=== PATIENT | female | born 1965 ===

== ENCOUNTER 2022-07-07 21:18 | Inpatient (IN) ==
[2022-07-08] MEDS ORDERED: ACETAMINOPHEN 325 MG TABLET PO PRN (00:18)
[2022-07-08] MEDS ORDERED: MORPHINE 2 MG/1 ML SYRINGE IV PRN ×2 (00:18→15:58)
[2022-07-08] MEDS ORDERED: ONDANSETRON 4 MG/2 ML VIAL IV PRN (00:18)
[2022-07-08] MEDS ORDERED: GLUCAGON 1 MG VIAL IM PRN (00:18)
[2022-07-08] MEDS ORDERED: hydrALAZINE 20 MG/1 ML VIAL IV PRN (00:18)
[2022-07-08] MEDS ORDERED: DEXTROSE 10% 250 ML BAG IV PRN (00:29)
[2022-07-08 00:43] LABS: Basophils % 0.4 % (0.0-0.8); Eosinophils # 0.1 10*3/uL (0.0-0.87); Hemoglobin 7.8 GM/DL (12.0-16.0); Immature Granulocytes % 1.5 %; Immature Granulocytes Absolute 0.08 #; Lymphocytes # 1.4 10*3/uL (1.4-4.0); Lymphocytes % 25.3 % (21.3-54.2); Mean Corpuscular HGB Conc 33.9 GM/DL (32-36); Mean Corpuscular Volume 101.8 FL (87-102); Monocytes # 0.4 10*3/uL (0.11-0.8); Monocytes % 7.8 % (1.7-12.7); NRBC # 0.02 10*3/uL; Platelet Count 102 T/CUMM (130-400); Red Blood Count 2.26 MC/CUMM (3.8-5.5); White Blood Count 5.5 T/CUMM (4-12)
[2022-07-08 01:12] LABS: Albumin 1.6 G/DL (3.4-5.0); Bilirubin,Total 0.4 MG/DL (0.20-1.00); Calcium 7.3 MG/DL (8.5-10.1); Potassium 2.8 MMOL/L (3.5-5.1); Total Protein 5.3 G/DL (6.4-8.2)
[2022-07-08] MEDS ORDERED: POTASSIUM CHLORIDE 20 MEQ TABLET PO ONE ×4 (01:49→18:00)
[2022-07-08] MEDS ORDERED: MAGNESIUM SULF RIDER 2 GM/50 ML PREMIX IV ONE ×2 (05:17→11:00)
[2022-07-08] MEDS ORDERED: ceFAZolin 1,000 MG VIAL INTRAPERIT SCH (09:00)
[2022-07-08] MEDS: PANTOPRAZOLE 40 MG TABLET PO SCH (09:16)
[2022-07-08] MEDS: INSULIN LISPRO 100 UNIT/ML SUBCUT SCH ×4 (10:21→21:39)
[2022-07-08] MEDS: EPOETIN ALFA-EPBX 3,000 UNIT/ML VIAL SUBCUT SCH (13:11)
[2022-07-08 15:34] LABS: Amylase,Peritoneal Fluid 18 U/L; Glucose,Peritoneal Fluid 204 MG/DL; LDH,Peritoneal Fluid 99 U/L; Total Protein,Peritoneal Fluid 1.3 G/DL
[2022-07-08 15:50] LABS: Neutrophils,Peritoneal Fluid 76 %
[2022-07-08 15:51] LABS: RBC,Peritoneal Fluid 55 T/CUMM
[2022-07-08] MEDS: oxyCODONE/ACETAMINOPHEN 5-325 MG TABLET PO PRN ×2 (17:46→21:39)
[2022-07-09 05:21] LABS: Basophils % 0.3 % (0.0-0.8); Eosinophils # 0.3 10*3/uL (0.0-0.87); Eosinophils % 4.1 % (0.00-10.9); Hematocrit 24.8 VOL% (35.7-47.0); Hemoglobin 7.9 GM/DL (12.0-16.0); Immature Granulocytes % 1.1 %; Immature Granulocytes Absolute 0.07 #; Lymphocytes # 1.3 10*3/uL (1.4-4.0); Lymphocytes % 19.9 % (21.3-54.2); Mean Corpuscular HGB Conc 31.9 GM/DL (32-36); Mean Platelet Volume 10.4 FL (9.6-12.0); Monocytes # 0.5 10*3/uL (0.11-0.8); Monocytes % 7.9 % (1.7-12.7); NRBC # 0.02 10*3/uL; Neutrophils % 66.7 % (38.7-73.9); Platelet Count 101 T/CUMM (130-400); Red Blood Count 2.34 MC/CUMM (3.8-5.5); Red Cell Distribution Width 15.6 % (9.3-17.3); White Blood Count 6.6 T/CUMM (4-12)
[2022-07-09 05:39] LABS: Osmolality,Calculated 278.2 MOS/KG (273-304); Potassium 5.5 MMOL/L (3.5-5.1)
[2022-07-09 05:44] LABS: Platelet Estimate Adequate
[2022-07-09 05:45] LABS: Anisocytosis 1+; Macrocytosis 1+
[2022-07-09] MEDS: PANTOPRAZOLE 40 MG TABLET PO SCH (08:49)
[2022-07-09] MEDS: INSULIN LISPRO 100 UNIT/ML SUBCUT SCH ×5 (10:54→20:23)
[2022-07-09] MEDS: SODIUM POLYSTYRENE SULFATE 15 GM/60 ML BOTTLE PO SCH ×3 (11:03→23:19)
[2022-07-09] MEDS: oxyCODONE/ACETAMINOPHEN 5-325 MG TABLET PO PRN ×2 (15:30→21:23)
[2022-07-09] MEDS: DICLOFENAC 1% GEL 100 GM TUBE TOP SCH ×2 (18:16→21:24)
[2022-07-09] MEDS: ALUMINUM/MAGNES/SIMETH MAX STR 30 ML UDCUP PO PRN (21:23)
[2022-07-10 05:28] LABS: Basophils % 0.3 % (0.0-0.8); Eosinophils # 0.2 10*3/uL (0.0-0.87); Eosinophils % 3.6 % (0.00-10.9); Hematocrit 30.9 VOL% (35.7-47.0); Hemoglobin 9.6 GM/DL (12.0-16.0); Immature Granulocytes Absolute 0.06 #; Lymphocytes # 1.3 10*3/uL (1.4-4.0); Lymphocytes % 21.3 % (21.3-54.2); Mean Corpuscular HGB Conc 31.1 GM/DL (32-36); Mean Corpuscular Volume 107.3 FL (87-102); Monocytes # 0.4 10*3/uL (0.11-0.8); Monocytes % 6.4 % (1.7-12.7); NRBC # 0.02 10*3/uL; Neutrophils % 67.4 % (38.7-73.9); Platelet Count 103 T/CUMM (130-400); Red Blood Count 2.88 MC/CUMM (3.8-5.5); Red Cell Distribution Width 15.1 % (9.3-17.3); White Blood Count 6.1 T/CUMM (4-12)
[2022-07-10 05:57] LABS: Alanine Aminotransferase < 9 U/L (13-56); Albumin 1.8 G/DL (3.4-5.0); Alkaline Phosphatase 95 U/L (45-117); Aspartate Amino Transferase 23 U/L (0-37); Blood Urea Nitrogen 42 MG/DL (7-18); Calcium 8.6 MG/DL (8.5-10.1); Carbon Dioxide 26 MMOL/L (21-32); Chloride 97 MMOL/L (98-107); Glucose 145 MG/DL (74-106); Osmolality,Calculated 283.1 MOS/KG (273-304); Potassium 4.3 MMOL/L (3.5-5.1); Sodium 135 MMOL/L (136-145); Total Protein 6.5 G/DL (6.4-8.2)
[2022-07-10] MEDS: SODIUM POLYSTYRENE SULFATE 15 GM/60 ML BOTTLE PO SCH ×2 (06:45→12:23)
[2022-07-10] MEDS: INSULIN LISPRO 100 UNIT/ML SUBCUT SCH ×4 (08:11→21:05)
[2022-07-10] MEDS: PANTOPRAZOLE 40 MG TABLET PO SCH (08:46)
[2022-07-10] MEDS: DICLOFENAC 1% GEL 100 GM TUBE TOP SCH ×3 (08:47→21:06)
[2022-07-10] MEDS: EPOETIN ALFA-EPBX 3,000 UNIT/ML VIAL SUBCUT SCH (08:49)
[2022-07-10] MEDS: oxyCODONE/ACETAMINOPHEN 5-325 MG TABLET PO PRN (17:46)
[2022-07-11 05:04] LABS: Basophils % 0.6 % (0.0-0.8); Hematocrit 24.6 VOL% (35.7-47.0); Hemoglobin 7.8 GM/DL (12.0-16.0); Immature Granulocytes % 1.8 %; Immature Granulocytes Absolute 0.09 #; Lymphocytes # 0.6 10*3/uL (1.4-4.0); Lymphocytes % 11.8 % (21.3-54.2); Mean Corpuscular HGB Conc 31.7 GM/DL (32-36); Mean Corpuscular Volume 105.6 FL (87-102); Mean Platelet Volume 10.3 FL (9.6-12.0); Monocytes # 0.5 10*3/uL (0.11-0.8); Monocytes % 10.6 % (1.7-12.7); NRBC # 0.02 10*3/uL; Neutrophils % 75.2 % (38.7-73.9); Platelet Count 83 T/CUMM (130-400); Red Blood Count 2.33 MC/CUMM (3.8-5.5); Red Cell Distribution Width 14.7 % (9.3-17.3); White Blood Count 5.1 T/CUMM (4-12)
[2022-07-11 05:25] LABS: Alanine Aminotransferase < 6 U/L (13-56); Albumin 1.4 G/DL (3.4-5.0); Alkaline Phosphatase 80 U/L (45-117); Aspartate Amino Transferase 17 U/L (0-37); Bilirubin,Total < 0.39 MG/DL (0.20-1.00); Blood Urea Nitrogen 40 MG/DL (7-18); Calcium 8.2 MG/DL (8.5-10.1); Carbon Dioxide 31 MMOL/L (21-32); Chloride 94 MMOL/L (98-107); Glucose 171 MG/DL (74-106); Osmolality,Calculated 279.4 MOS/KG (273-304); Potassium 3.7 MMOL/L (3.5-5.1); Sodium 133 MMOL/L (136-145); Total Protein 5.4 G/DL (6.4-8.2)
[2022-07-11 05:32] LABS: Platelet Estimate Decreased
[2022-07-11] MEDS: INSULIN LISPRO 100 UNIT/ML SUBCUT SCH ×4 (08:35→21:34)
[2022-07-11] MEDS: BENZONATATE 100 MG CAPSULE PO PRN ×2 (08:35→14:53)
[2022-07-11] MEDS: PANTOPRAZOLE 40 MG TABLET PO SCH (08:35)
[2022-07-11] MEDS: DICLOFENAC 1% GEL 100 GM TUBE TOP SCH ×3 (08:36→21:35)
[2022-07-11] MEDS: ALUMINUM/MAGNES/SIMETH MAX STR 30 ML UDCUP PO PRN (08:39)
[2022-07-11] MEDS: oxyCODONE/ACETAMINOPHEN 5-325 MG TABLET PO PRN (14:54)
[2022-07-11] MEDS ORDERED: amLODIPine 10 MG TABLET PO ONE (15:00)
[2022-07-12 05:50] LABS: Basophils % 0.4 % (0.0-0.8); Eosinophils # 0.4 10*3/uL (0.0-0.87); Eosinophils % 7.4 % (0.00-10.9); Hematocrit 22.6 VOL% (35.7-47.0); Hemoglobin 7.3 GM/DL (12.0-16.0); Immature Granulocytes % 1.2 %; Immature Granulocytes Absolute 0.06 #; Lymphocytes # 0.6 10*3/uL (1.4-4.0); Lymphocytes % 11.3 % (21.3-54.2); Mean Corpuscular HGB Conc 32.3 GM/DL (32-36); Mean Corpuscular Volume 104.6 FL (87-102); Mean Platelet Volume 11.1 FL (9.6-12.0); Monocytes # 0.4 10*3/uL (0.11-0.8); Monocytes % 7.6 % (1.7-12.7); NRBC # 0.02 10*3/uL; Neutrophils % 72.1 % (38.7-73.9); Platelet Count 81 T/CUMM (130-400); Red Blood Count 2.16 MC/CUMM (3.8-5.5); Red Cell Distribution Width 14.6 % (9.3-17.3)
[2022-07-12 06:06] LABS: Alanine Aminotransferase < 6 U/L (13-56); Albumin 1.3 G/DL (3.4-5.0); Alkaline Phosphatase 79 U/L (45-117); Aspartate Amino Transferase 16 U/L (0-37); Bilirubin,Total < 0.39 MG/DL (0.20-1.00); Blood Urea Nitrogen 36 MG/DL (7-18); Calcium 8.5 MG/DL (8.5-10.1); Carbon Dioxide 30 MMOL/L (21-32); Chloride 94 MMOL/L (98-107); Glucose 212 MG/DL (74-106); Osmolality,Calculated 277.5 MOS/KG (273-304); Potassium 3.5 MMOL/L (3.5-5.1); Sodium 132 MMOL/L (136-145); Total Protein 5.3 G/DL (6.4-8.2)
[2022-07-12 06:24] LABS: Macrocytosis 1+; Platelet Estimate Decreased; Polychromasia Few
[2022-07-12] MEDS: PANTOPRAZOLE 40 MG TABLET PO SCH (08:57)
[2022-07-12] MEDS: BENZONATATE 100 MG CAPSULE PO PRN (08:57)
[2022-07-12] MEDS: oxyCODONE/ACETAMINOPHEN 5-325 MG TABLET PO PRN (08:57)
[2022-07-12] MEDS: EPOETIN ALFA-EPBX 3,000 UNIT/ML VIAL SUBCUT SCH (09:01)
[2022-07-12] MEDS: DICLOFENAC 1% GEL 100 GM TUBE TOP SCH (09:08)
[2022-07-12] MEDS: INSULIN LISPRO 100 UNIT/ML SUBCUT SCH ×2 (10:10→12:53)
[2022-07-12 13:36] VITALS: BP 147/73
== END 2022-07-12 14:34 | disposition home or self-care (01) | DRG 371 ==
LOC: N.5E 23:13 → SUATTDRO 23:13
PROVIDERS: ADMIT Internal Medicine; ATTEND Internal Medicine

== ENCOUNTER 2022-07-21 12:02 | Inpatient (IN) ==
[2022-07-21 12:37] LABS: Basophils % 0.7 % (0.0-0.8); Eosinophils # 0.1 10*3/uL (0.0-0.87); Eosinophils % 1.6 % (0.00-10.9); Hematocrit 26.4 VOL% (35.7-47.0); Hemoglobin 8.5 GM/DL (12.0-16.0); Immature Granulocytes % 2.1 %; Immature Granulocytes Absolute 0.09 #; Lymphocytes % 23.2 % (21.3-54.2); Mean Corpuscular HGB Conc 32.2 GM/DL (32-36); Mean Corpuscular Volume 104.3 FL (87-102); Mean Platelet Volume 10.9 FL (9.6-12.0); Monocytes # 0.3 10*3/uL (0.11-0.8); Monocytes % 7.8 % (1.7-12.7); NRBC # 0.02 10*3/uL; Neutrophils % 64.6 % (38.7-73.9); Platelet Count 79 T/CUMM (130-400); Red Blood Count 2.53 MC/CUMM (3.8-5.5); Red Cell Distribution Width 14.5 % (9.3-17.3); White Blood Count 4.4 T/CUMM (4-12)
[2022-07-21 12:53] LABS: Alanine Aminotransferase < 6 U/L (13-56); Albumin 1.5 G/DL (3.4-5.0); Alkaline Phosphatase 119 U/L (45-117); Amylase 42 U/L (25-115); Aspartate Amino Transferase 31 U/L (0-37); Blood Urea Nitrogen 22 MG/DL (7-18); Calcium 7.8 MG/DL (8.5-10.1); Carbon Dioxide 28 MMOL/L (21-32); Chloride 94 MMOL/L (98-107); Glucose 106 MG/DL (74-106); Osmolality,Calculated 264.7 MOS/KG (273-304); Potassium 2.8 MMOL/L (3.5-5.1); Sodium 131 MMOL/L (136-145); Total Protein 5.4 G/DL (6.4-8.2)
[2022-07-21 13:22] LABS: Anisocytosis Slight; Pappenheimer Bodies Slight
[2022-07-21 13:23] LABS: Platelet Estimate Decreased; Polychromasia Few
[2022-07-21] MEDS ORDERED: POTASSIUM CHLORIDE RIDER 20 MEQ/100 ML PREMIX IV STA (13:45)
[2022-07-21] MEDS: POTASSIUM CHLORIDE RIDER 10 MEQ/100 ML PREMIX IV SCH ×2 (14:00→15:21)
[2022-07-21] MEDS ORDERED: guaiFENesin/DM ER 600-30 MG TABLET PO PRN (15:08)
[2022-07-21] MEDS ORDERED: hydrALAZINE 20 MG/1 ML VIAL IV PRN (15:08)
[2022-07-21] MEDS ORDERED: LACTULOSE 20 GM/30 ML UDCUP PO PRN (15:08)
[2022-07-21] MEDS ORDERED: PROMETHAZINE 25 MG/1 ML VIAL IM PRN (15:08)
[2022-07-21] MEDS ORDERED: ONDANSETRON 4 MG/2 ML VIAL IV PRN (15:08)
[2022-07-21] MEDS ORDERED: cefTRIAXone 2,000 MG in SODIUM CHLORIDE 0.9% 100 ML IV SCH (15:30)
[2022-07-21] MEDS ORDERED: INSULIN REGULAR 100 UNIT/ML SUBCUT STA (15:51)
[2022-07-21] MEDS ORDERED: POTASSIUM CHLORIDE 20 MEQ TABLET PO ONE (16:11)
[2022-07-21] MEDS ORDERED: POTASSIUM CHLORIDE INJ 10 MEQ in DEXTROSE 5% NACL 0.9% 1,000 ML IV SCH (16:30)
[2022-07-21] MEDS: amLODIPine 10 MG TABLET PO SCH (17:38)
[2022-07-21] MEDS: PANTOPRAZOLE 40 MG TABLET PO SCH (17:38)
[2022-07-21] MEDS ORDERED: EPOETIN ALFA-EPBX 10,000 UNIT/ML VIAL SUBCUT ONE (20:00)
[2022-07-21] MEDS: GABAPENTIN 300 MG CAPSULE PO SCH (21:04)
[2022-07-21] MEDS: cloNIDine 0.1 MG TABLET PO SCH (21:04)
[2022-07-21] MEDS: FERROUS SULFATE 325 MG TABLET PO SCH (21:04)
[2022-07-21] MEDS: LUBIPROSTONE 24 MCG CAPSULE PO SCH (21:04)
[2022-07-22 06:02] LABS: Basophils % 0.3 % (0.0-0.8); Eosinophils # 0.3 10*3/uL (0.0-0.87); Eosinophils % 4.5 % (0.00-10.9); Hematocrit 24.7 VOL% (35.7-47.0); Hemoglobin 8.1 GM/DL (12.0-16.0); Immature Granulocytes % 1.7 %; Lymphocytes # 1.2 10*3/uL (1.4-4.0); Lymphocytes % 20.5 % (21.3-54.2); Mean Corpuscular HGB Conc 32.8 GM/DL (32-36); Mean Corpuscular Volume 106.5 FL (87-102); Mean Platelet Volume 9.3 FL (9.6-12.0); Monocytes # 0.4 10*3/uL (0.11-0.8); Monocytes % 7.3 % (1.7-12.7); NRBC # 0.02 10*3/uL; Neutrophils % 65.7 % (38.7-73.9); Platelet Count 68 T/CUMM (130-400); Red Blood Count 2.32 MC/CUMM (3.8-5.5); Red Cell Distribution Width 14.9 % (9.3-17.3)
[2022-07-22 06:27] LABS: Alanine Aminotransferase < 6 U/L (13-56); Albumin 1.3 G/DL (3.4-5.0); Alkaline Phosphatase 81 U/L (45-117); Aspartate Amino Transferase 22 U/L (0-37); Bilirubin,Total < 0.39 MG/DL (0.20-1.00); Blood Urea Nitrogen 24 MG/DL (7-18); Calcium 7.6 MG/DL (8.5-10.1); Carbon Dioxide 25 MMOL/L (21-32); Chloride 98 MMOL/L (98-107); Cholesterol 145 MG/DL (50-200); Glucose 112 MG/DL (74-106); HDL Cholesterol 48 MG/DL (40-60); Osmolality,Calculated 268.5 MOS/KG (273-304); Potassium 3.4 MMOL/L (3.5-5.1); Risk Ratio 3.02; Sodium 132 MMOL/L (136-145); Total Protein 4.6 G/DL (6.4-8.2); Triglycerides 87 MG/DL (2-150); VLDL Cholesterol 17.4 MG/DL
[2022-07-22 06:30] LABS: Hypochromia Slight; Platelet Estimate Decreased
[2022-07-22] MEDS: LUBIPROSTONE 24 MCG CAPSULE PO SCH ×2 (09:55→21:00)
[2022-07-22] MEDS: FERROUS SULFATE 325 MG TABLET PO SCH ×2 (10:04→20:59)
[2022-07-22] MEDS: amLODIPine 10 MG TABLET PO SCH (10:04)
[2022-07-22] MEDS: BACILLUS COAGULANS CAPLET PO SCH (10:04)
[2022-07-22] MEDS: DULoxetine 30 MG CAPSULE PO SCH (10:04)
[2022-07-22] MEDS: cloNIDine 0.1 MG TABLET PO SCH ×2 (10:04→20:59)
[2022-07-22] MEDS: PANTOPRAZOLE 40 MG TABLET PO SCH (10:05)
[2022-07-22] MEDS: GABAPENTIN 300 MG CAPSULE PO SCH ×2 (10:05→20:59)
[2022-07-22] MEDS: ALBUTEROL/IPRATROPIUM 3 ML NEB RESP TX SCH ×3 (14:14→23:56)
[2022-07-22] MEDS ORDERED: cefTRIAXone 2,000 MG in SODIUM CHLORIDE 0.9% 100 ML INTRAPERIT SCH (15:30)
[2022-07-22] MEDS: cefTRIAXone 2,000 MG VIAL INTRAPERIT SCH (18:42)
[2022-07-23 05:04] LABS: Basophils % 0.4 % (0.0-0.8); Eosinophils % 0.6 % (0.00-10.9); Hematocrit 24.6 VOL% (35.7-47.0); Immature Granulocytes Absolute 0.05 #; Lymphocytes # 1.1 10*3/uL (1.4-4.0); Lymphocytes % 22.8 % (21.3-54.2); Mean Corpuscular HGB Conc 32.5 GM/DL (32-36); Mean Corpuscular Volume 105.6 FL (87-102); Mean Platelet Volume 10.9 FL (9.6-12.0); Monocytes # 0.4 10*3/uL (0.11-0.8); Monocytes % 8.7 % (1.7-12.7); NRBC # 0.03 10*3/uL; Neutrophils % 66.5 % (38.7-73.9); Platelet Count 75 T/CUMM (130-400); Red Blood Count 2.33 MC/CUMM (3.8-5.5); Red Cell Distribution Width 14.4 % (9.3-17.3)
[2022-07-23 05:25] LABS: Platelet Estimate Decreased
[2022-07-23 05:37] LABS: Alanine Aminotransferase < 6 U/L (13-56); Albumin 1.5 G/DL (3.4-5.0); Alkaline Phosphatase 83 U/L (45-117); Aspartate Amino Transferase 22 U/L (0-37); Bilirubin,Total < 0.39 MG/DL (0.20-1.00); Blood Urea Nitrogen 24 MG/DL (7-18); Calcium 7.6 MG/DL (8.5-10.1); Carbon Dioxide 27 MMOL/L (21-32); Chloride 93 MMOL/L (98-107); Glucose 128 MG/DL (74-106); Osmolality,Calculated 263.9 MOS/KG (273-304); Potassium 3.3 MMOL/L (3.5-5.1); Sodium 129 MMOL/L (136-145)
[2022-07-23] MEDS: ALBUTEROL/IPRATROPIUM 3 ML NEB RESP TX SCH ×2 (07:00→13:02)
[2022-07-23] MEDS ORDERED: POTASSIUM CHLORIDE 20 MEQ TABLET PO ONE (08:06)
[2022-07-23] MEDS: LUBIPROSTONE 24 MCG CAPSULE PO SCH (09:36)
[2022-07-23] MEDS: DULoxetine 30 MG CAPSULE PO SCH (09:37)
[2022-07-23] MEDS: GABAPENTIN 300 MG CAPSULE PO SCH (09:37)
[2022-07-23] MEDS: cloNIDine 0.1 MG TABLET PO SCH (09:38)
[2022-07-23] MEDS: amLODIPine 10 MG TABLET PO SCH (09:38)
[2022-07-23] MEDS: PANTOPRAZOLE 40 MG TABLET PO SCH (09:39)
[2022-07-23] MEDS: FERROUS SULFATE 325 MG TABLET PO SCH (09:39)
[2022-07-23] MEDS: BACILLUS COAGULANS CAPLET PO SCH (09:40)
[2022-07-23] MEDS: cefTRIAXone 2,000 MG VIAL INTRAPERIT SCH (14:02)
[2022-07-23 15:07] VITALS: BP 123/64
== END 2022-07-23 17:40 | disposition home or self-care (01) | DRG 371 ==
LOC: N.ED 12:02 → SUATTDRO 15:08 → N.EDINP 15:08 → N.TELEN 15:55
PROVIDERS: ADMIT Emergency Medicine; ATTEND Internal Medicine

== ENCOUNTER 2022-10-02 20:15 | Inpatient (IN) ==
[2022-10-02 21:33] LABS: Eosinophils # 0.2 10*3/uL (0.0-0.87); Eosinophils % 5.5 % (0.00-10.9); Hematocrit 31.9 VOL% (35.7-47.0); Hemoglobin 10.5 GM/DL (12.0-16.0); Immature Granulocytes Absolute 0.03 #; Lymphocytes # 0.8 10*3/uL (1.4-4.0); Lymphocytes % 24.3 % (21.3-54.2); Mean Corpuscular HGB Conc 32.9 GM/DL (32-36); Mean Corpuscular Volume 102.2 FL (87-102); Mean Platelet Volume 8.6 FL (9.6-12.0); Monocytes # 0.3 10*3/uL (0.11-0.8); Monocytes % 8.7 % (1.7-12.7); Neutrophils % 59.5 % (38.7-73.9); Platelet Count 101 T/CUMM (130-400); Red Blood Count 3.12 MC/CUMM (3.8-5.5); Red Cell Distribution Width 14.2 % (9.3-17.3); White Blood Count 3.1 T/CUMM (4-12)
[2022-10-02 21:42] LABS: PT Patient Result 11.5 SECS (10.1-12.1); Partial Thromboplastin Time 30.4 SECS (23.7-32.9)
[2022-10-02 21:50] LABS: Alanine Aminotransferase < 9 U/L (13-56); Albumin 1.3 G/DL (3.4-5.0); Alkaline Phosphatase 95 U/L (45-117); Aspartate Amino Transferase 17 U/L (0-37); Bilirubin,Total < 0.39 MG/DL (0.20-1.00); Blood Urea Nitrogen 30 MG/DL (7-18); Calcium 7.7 MG/DL (8.5-10.1); Carbon Dioxide 28 MMOL/L (21-32); Chloride 98 MMOL/L (98-107); Glucose 118 MG/DL (74-106); Osmolality,Calculated 274.2 MOS/KG (273-304); Potassium 2.9 MMOL/L (3.5-5.1); Sodium 134 MMOL/L (136-145); Total Protein 5.5 G/DL (6.4-8.2)
[2022-10-02 22:43] LABS: Basophils % 0.6 % (0.0-0.8); Eosinophils # 0.3 10*3/uL (0.0-0.87); Eosinophils % 6.7 % (0.00-10.9); Hematocrit 19.4 VOL% (35.7-47.0); Immature Granulocytes % 0.6 %; Immature Granulocytes Absolute 0.03 #; Lymphocytes # 1.3 10*3/uL (1.4-4.0); Lymphocytes % 26.4 % (21.3-54.2); Mean Corpuscular HGB Conc 32.5 GM/DL (32-36); Mean Corpuscular Volume 103.2 FL (87-102); Mean Platelet Volume 8.8 FL (9.6-12.0); Monocytes # 0.5 10*3/uL (0.11-0.8); Neutrophils % 55.7 % (38.7-73.9); Platelet Count 109 T/CUMM (130-400); Red Blood Count 1.88 MC/CUMM (3.8-5.5); Red Cell Distribution Width 14.3 % (9.3-17.3); White Blood Count 4.8 T/CUMM (4-12)
[2022-10-02 22:49] LABS: Hemoglobin 6.3 GM/DL (12.0-16.0)
[2022-10-02 22:59] LABS: Bacteria,Urine Moderate /HPF (Few); Squamous Epithelial Cell,Urine Occasional /HPF (0-10)
[2022-10-02 23:01] LABS: Glucose,Urine (UA) 100 mg/dL (Negative); Ketones,Urine Negative (Negative); Nitrite,Urine Negative (Negative); Protein,Urine 100 mg/dL (Negative); Urine Appearance Clear (Clear); Urine Color Yellow (Yellow); Urine Specific Gravity 1.015 (1.001-1.035)
[2022-10-02 23:02] LABS: Bilirubin,Urine Negative (Negative); Blood, Urine Moderate mg/dL (Negative); Urine Urobilinogen 0.2 eU/dL (<2.0)
[2022-10-02 23:05] LABS: RBC,Urine 2 /HPF (0-4)
[2022-10-02 23:08] LABS: Alanine Aminotransferase < 9 U/L (13-56); Albumin 1.2 G/DL (3.4-5.0); Alkaline Phosphatase 92 U/L (45-117); Aspartate Amino Transferase 19 U/L (0-37); Bilirubin,Total < 0.39 MG/DL (0.20-1.00); Blood Urea Nitrogen 28 MG/DL (7-18); Calcium 7.7 MG/DL (8.5-10.1); Carbon Dioxide 26 MMOL/L (21-32); Chloride 98 MMOL/L (98-107); Glucose 99 MG/DL (74-106); Osmolality,Calculated 273.2 MOS/KG (273-304); Potassium 2.8 MMOL/L (3.5-5.1); Sodium 134 MMOL/L (136-145); Total Protein 5.3 G/DL (6.4-8.2)
[2022-10-03 00:39] LABS: Alanine Aminotransferase 9 U/L (13-56); Albumin 1.3 G/DL (3.4-5.0); Alkaline Phosphatase 94 U/L (45-117); Aspartate Amino Transferase 19 U/L (0-37); Bilirubin,Total < 0.39 MG/DL (0.20-1.00); Blood Urea Nitrogen 29 MG/DL (7-18); Calcium 7.7 MG/DL (8.5-10.1); Carbon Dioxide 27 MMOL/L (21-32); Chloride 97 MMOL/L (98-107); Glucose 98 MG/DL (74-106); Osmolality,Calculated 273.2 MOS/KG (273-304); Sodium 134 MMOL/L (136-145); Total Protein 5.6 G/DL (6.4-8.2)
[2022-10-03 00:53] LABS: Basophils % 0.5 % (0.0-0.8); Eosinophils # 0.3 10*3/uL (0.0-0.87); Eosinophils % 5.8 % (0.00-10.9); Hematocrit 21.3 VOL% (35.7-47.0); Hemoglobin 6.8 GM/DL (12.0-16.0); Immature Granulocytes % 0.7 %; Immature Granulocytes Absolute 0.03 #; Lymphocytes # 1.2 10*3/uL (1.4-4.0); Lymphocytes % 28.5 % (21.3-54.2); Mean Corpuscular HGB Conc 31.9 GM/DL (32-36); Mean Corpuscular Volume 104.4 FL (87-102); Monocytes # 0.4 10*3/uL (0.11-0.8); Monocytes % 9.3 % (1.7-12.7); Neutrophils % 55.2 % (38.7-73.9); Platelet Count 128 T/CUMM (130-400); Red Blood Count 2.04 MC/CUMM (3.8-5.5); Red Cell Distribution Width 14.1 % (9.3-17.3); White Blood Count 4.3 T/CUMM (4-12)
[2022-10-03 02:12] LABS: RBC,Peritoneal Fluid 810 T/CUMM
[2022-10-03] MEDS ORDERED: ACETAMINOPHEN 325 MG TABLET PO PRN (02:53)
[2022-10-03] MEDS ORDERED: ONDANSETRON 4 MG/2 ML VIAL IV PRN (02:53)
[2022-10-03] MEDS ORDERED: SIMETHICONE CHEW 125 MG TABLET PO PRN (02:53)
[2022-10-03] MEDS ORDERED: SODIUM CHLORIDE 0.9% 1,000 ML IV PRN (02:53)
[2022-10-03] MEDS ORDERED: METHOCARBAMOL 500 MG TABLET PO PRN (03:16)
[2022-10-03] MEDS ORDERED: cefTRIAXone 1,000 MG in SODIUM CHLORIDE 0.9% 100 ML IV ONE (04:10)
[2022-10-03] MEDS ORDERED: POTASSIUM CHLORIDE 20 MEQ TABLET PO STA (04:12)
[2022-10-03] MEDS ORDERED: MAGNESIUM SULF RIDER 2 GM/50 ML PREMIX IV ONE (05:40)
[2022-10-03] MEDS ORDERED: POTASSIUM CHLORIDE 20 MEQ TABLET PO ONE (07:42)
[2022-10-03] MEDS ORDERED: ceFAZolin 1,000 MG VIAL INTRAPERIT SCH ×2 (09:00→21:00)
[2022-10-03] MEDS: BACILLUS COAGULANS CAPLET PO SCH (09:29)
[2022-10-03] MEDS: calcitrioL 0.25 MCG CAPSULE PO SCH (09:30)
[2022-10-03] MEDS: DULoxetine 30 MG CAPSULE PO SCH (09:30)
[2022-10-03] MEDS: amLODIPine 10 MG TABLET PO SCH (09:30)
[2022-10-03] MEDS: FERROUS SULFATE 325 MG TABLET PO SCH ×2 (09:31→20:43)
[2022-10-03] MEDS: cloNIDine 0.1 MG TABLET PO SCH ×2 (09:31→20:43)
[2022-10-03] MEDS: PANTOPRAZOLE 40 MG TABLET PO SCH (09:31)
[2022-10-03] MEDS: DOCUSATE SODIUM 100 MG CAPSULE PO SCH ×2 (09:31→20:43)
[2022-10-03] MEDS: GABAPENTIN 300 MG CAPSULE PO SCH ×2 (09:31→20:43)
[2022-10-03] MEDS: HEPARIN 5,000 UNIT/1 ML VIAL SUBCUT SCH ×2 (09:32→20:44)
[2022-10-03] MEDS: LUBIPROSTONE 24 MCG CAPSULE PO SCH ×2 (09:39→20:43)
[2022-10-03 11:23] LABS: Hematocrit 24.5 VOL% (35.7-47.0); Hemoglobin 8.1 GM/DL (12.0-16.0)
[2022-10-03] MEDS: cefTRIAXone 1,000 MG in SODIUM CHLORIDE 0.9% 100 ML IV SCH (12:17)
[2022-10-03 13:57] LABS: Calcium 7.1 MG/DL (8.5-10.1); Osmolality,Calculated 278.1 MOS/KG (273-304); Potassium 3.7 MMOL/L (3.5-5.1)
[2022-10-03] MEDS ORDERED: VANCOMYCIN 1,000 MG VIAL INTRAPERIT SCH (21:00)
[2022-10-04 05:44] LABS: Basophils % 0.5 % (0.0-0.8); Eosinophils # 0.2 10*3/uL (0.0-0.87); Eosinophils % 5.5 % (0.00-10.9); Hematocrit 24.3 VOL% (35.7-47.0); Immature Granulocytes Absolute 0.04 #; Lymphocytes # 1.3 10*3/uL (1.4-4.0); Lymphocytes % 31.7 % (21.3-54.2); Mean Corpuscular HGB Conc 32.9 GM/DL (32-36); Monocytes # 0.4 10*3/uL (0.11-0.8); Monocytes % 10.8 % (1.7-12.7); Neutrophils % 50.5 % (38.7-73.9); Platelet Count 104 T/CUMM (130-400); Red Blood Count 2.48 MC/CUMM (3.8-5.5); Red Cell Distribution Width 16.7 % (9.3-17.3)
[2022-10-04 06:23] LABS: Alanine Aminotransferase < 6 U/L (13-56); Albumin 1.3 G/DL (3.4-5.0); Alkaline Phosphatase 88 U/L (45-117); Aspartate Amino Transferase 19 U/L (0-37); Bilirubin,Total < 0.39 MG/DL (0.20-1.00); Blood Urea Nitrogen 31 MG/DL (7-18); Calcium 8.2 MG/DL (8.5-10.1); Carbon Dioxide 26 MMOL/L (21-32); Chloride 96 MMOL/L (98-107); Glucose 145 MG/DL (74-106); Osmolality,Calculated 273.5 MOS/KG (273-304); Potassium 3.8 MMOL/L (3.5-5.1); Sodium 132 MMOL/L (136-145); Total Protein 5.4 G/DL (6.4-8.2)
[2022-10-04] MEDS: cloNIDine 0.1 MG TABLET PO SCH (08:29)
[2022-10-04] MEDS: amLODIPine 10 MG TABLET PO SCH (08:29)
[2022-10-04] MEDS: LUBIPROSTONE 24 MCG CAPSULE PO SCH (08:29)
[2022-10-04] MEDS: calcitrioL 0.25 MCG CAPSULE PO SCH (08:29)
[2022-10-04] MEDS: GABAPENTIN 300 MG CAPSULE PO SCH (08:29)
[2022-10-04] MEDS: BACILLUS COAGULANS CAPLET PO SCH (08:29)
[2022-10-04] MEDS: PANTOPRAZOLE 40 MG TABLET PO SCH (08:29)
[2022-10-04] MEDS: FERROUS SULFATE 325 MG TABLET PO SCH (08:29)
[2022-10-04] MEDS: DULoxetine 30 MG CAPSULE PO SCH (08:29)
[2022-10-04] MEDS: DOCUSATE SODIUM 100 MG CAPSULE PO SCH (08:29)
[2022-10-04] MEDS: HEPARIN 5,000 UNIT/1 ML VIAL SUBCUT SCH (08:33)
[2022-10-04] MEDS ORDERED: amLODIPine 10 MG TABLET PO SCH (09:00)
[2022-10-04] MEDS ORDERED: BACILLUS COAGULANS CAPLET PO SCH (09:00)
[2022-10-04] MEDS: cefTRIAXone 1,000 MG in SODIUM CHLORIDE 0.9% 100 ML IV SCH (11:40)
[2022-10-04 11:50] VITALS: BP 145/71
== END 2022-10-04 14:09 | disposition home or self-care (01) | DRG 919 ==
LOC: EDBD → EDUNIT# → N.ED 20:15 → N.EDINP 10-03 02:53 → N.2E 10-03 04:34
PROVIDERS: ADMIT Hospitalist; ATTEND Hospitalist

== ENCOUNTER 2022-10-16 17:46 | Inpatient (IN) ==
[2022-10-16] MEDS ORDERED: ACETAMINOPHEN 325 MG TABLET PO PRN (23:42)
[2022-10-16] MEDS ORDERED: ONDANSETRON 4 MG/2 ML VIAL IV PRN (23:42)
[2022-10-17] MEDS: METHOCARBAMOL 500 MG TABLET PO PRN ×2 (01:28→08:34)
[2022-10-17] MEDS ORDERED: POTASSIUM CHLORIDE 20 MEQ TABLET PO ONE (01:33)
[2022-10-17 05:40] LABS: Basophils % 0.2 % (0.0-0.8); Eosinophils # 0.2 10*3/uL (0.0-0.87); Eosinophils % 4.3 % (0.00-10.9); Hematocrit 26.8 VOL% (35.7-47.0); Hemoglobin 8.7 GM/DL (12.0-16.0); Immature Granulocytes % 0.4 %; Immature Granulocytes Absolute 0.02 #; Lymphocytes # 1.4 10*3/uL (1.4-4.0); Lymphocytes % 25.7 % (21.3-54.2); Mean Corpuscular HGB Conc 32.5 GM/DL (32-36); Mean Corpuscular Volume 98.5 FL (87-102); Monocytes # 0.4 10*3/uL (0.11-0.8); Monocytes % 7.4 % (1.7-12.7); Platelet Count 82 T/CUMM (130-400); Red Blood Count 2.72 MC/CUMM (3.8-5.5); Red Cell Distribution Width 16.8 % (9.3-17.3); White Blood Count 5.41 T/CUMM (4-12)
[2022-10-17 06:14] LABS: Alanine Aminotransferase < 6 U/L (13-56); Albumin 1.3 G/DL (3.4-5.0); Alkaline Phosphatase 131 U/L (45-117); Aspartate Amino Transferase 32 U/L (0-37); Blood Urea Nitrogen 27 MG/DL (7-18); Calcium 7.9 MG/DL (8.5-10.1); Carbon Dioxide 29 MMOL/L (21-32); Chloride 96 MMOL/L (98-107); Glucose 128 MG/DL (74-106); Osmolality,Calculated 276.1 MOS/KG (273-304); Potassium 3.2 MMOL/L (3.5-5.1); Sodium 135 MMOL/L (136-145); Total Protein 5.7 G/DL (6.4-8.2)
[2022-10-17 06:17] LABS: Platelet Estimate Decreased
[2022-10-17] MEDS: LUBIPROSTONE 24 MCG CAPSULE PO SCH ×2 (08:32→21:14)
[2022-10-17] MEDS: GABAPENTIN 300 MG CAPSULE PO SCH ×2 (08:33→21:14)
[2022-10-17] MEDS: CYANOCOBALAMIN 500 MCG TABLET PO SCH (08:35)
[2022-10-17] MEDS: cloNIDine 0.1 MG TABLET PO SCH ×2 (08:35→21:13)
[2022-10-17] MEDS: MONTELUKAST 10 MG TABLET PO SCH (08:35)
[2022-10-17] MEDS: allopurinoL 100 MG TABLET PO SCH (08:35)
[2022-10-17] MEDS: FERROUS SULFATE 325 MG TABLET PO SCH ×2 (08:36→21:14)
[2022-10-17] MEDS: ASPIRIN EC 81 MG TABLET PO SCH (08:36)
[2022-10-17] MEDS: BENZONATATE 100 MG CAPSULE PO SCH ×3 (08:36→21:13)
[2022-10-17] MEDS: PANTOPRAZOLE 40 MG TABLET PO SCH (08:37)
[2022-10-17] MEDS: FOLIC ACID 1 MG TABLET PO SCH (08:37)
[2022-10-17] MEDS: LOSARTAN 25 MG TABLET PO SCH (08:37)
[2022-10-17] MEDS: carvediloL 6.25 MG TABLET PO SCH ×2 (08:37→21:13)
[2022-10-17] MEDS: ATORVASTATIN 40 MG TABLET PO SCH (21:13)
[2022-10-18] MEDS: ceFAZolin 1,000 MG VIAL INTRAPERIT SCH (00:44)
[2022-10-18 06:08] LABS: Basophils % 0.4 % (0.0-0.8); Eosinophils # 0.3 10*3/uL (0.0-0.87); Eosinophils % 4.9 % (0.00-10.9); Hematocrit 26.4 VOL% (35.7-47.0); Hemoglobin 8.7 GM/DL (12.0-16.0); Immature Granulocytes % 0.6 %; Immature Granulocytes Absolute 0.03 #; Lymphocytes # 1.3 10*3/uL (1.4-4.0); Lymphocytes % 25.7 % (21.3-54.2); Mean Corpuscular Volume 98.1 FL (87-102); Mean Platelet Volume 10.2 FL (9.6-12.0); Monocytes # 0.5 10*3/uL (0.11-0.8); Neutrophils % 59.4 % (38.7-73.9); Platelet Count 89 T/CUMM (130-400); Red Blood Count 2.69 MC/CUMM (3.8-5.5); Red Cell Distribution Width 16.7 % (9.3-17.3)
[2022-10-18 06:23] LABS: Phosphorous 5.9 MG/DL (2.5-4.9); Uric Acid 4.6 MG/DL (2.6-6.0)
[2022-10-18 06:23] LABS: Calcium 8.1 MG/DL (8.5-10.1); Osmolality,Calculated 274.2 MOS/KG (273-304); Potassium 3.2 MMOL/L (3.5-5.1)
[2022-10-18 06:33] LABS: Platelet Estimate Decreased
[2022-10-18] MEDS: GABAPENTIN 300 MG CAPSULE PO SCH ×2 (09:48→21:13)
[2022-10-18] MEDS: cloNIDine 0.1 MG TABLET PO SCH ×2 (09:49→21:14)
[2022-10-18] MEDS: MONTELUKAST 10 MG TABLET PO SCH (09:49)
[2022-10-18] MEDS: METHOCARBAMOL 500 MG TABLET PO PRN (09:49)
[2022-10-18] MEDS: allopurinoL 100 MG TABLET PO SCH (09:49)
[2022-10-18] MEDS: ASPIRIN EC 81 MG TABLET PO SCH (09:50)
[2022-10-18] MEDS: CYANOCOBALAMIN 500 MCG TABLET PO SCH (09:50)
[2022-10-18] MEDS: PANTOPRAZOLE 40 MG TABLET PO SCH (09:51)
[2022-10-18] MEDS: carvediloL 6.25 MG TABLET PO SCH ×2 (09:51→21:14)
[2022-10-18] MEDS: FERROUS SULFATE 325 MG TABLET PO SCH ×2 (09:51→21:14)
[2022-10-18] MEDS: BENZONATATE 100 MG CAPSULE PO SCH ×3 (09:51→21:14)
[2022-10-18] MEDS: FOLIC ACID 1 MG TABLET PO SCH (09:51)
[2022-10-18] MEDS: LUBIPROSTONE 24 MCG CAPSULE PO SCH ×2 (09:51→21:14)
[2022-10-18] MEDS: LOSARTAN 25 MG TABLET PO SCH (09:52)
[2022-10-18] MEDS: SEVELAMER CARBONATE 800 MG TABLET PO SCH (17:07)
[2022-10-18] MEDS: ATORVASTATIN 40 MG TABLET PO SCH (21:15)
[2022-10-19] MEDS: ceFAZolin 1,000 MG VIAL INTRAPERIT SCH (00:28)
[2022-10-19 05:49] LABS: Basophils % 0.7 % (0.0-0.8); Eosinophils # 0.3 10*3/uL (0.0-0.87); Eosinophils % 7.2 % (0.00-10.9); Hematocrit 25.7 VOL% (35.7-47.0); Hemoglobin 8.5 GM/DL (12.0-16.0); Immature Granulocytes % 0.5 %; Immature Granulocytes Absolute 0.02 #; Lymphocytes # 1.1 10*3/uL (1.4-4.0); Lymphocytes % 27.5 % (21.3-54.2); Mean Corpuscular HGB Conc 33.1 GM/DL (32-36); Mean Corpuscular Volume 98.1 FL (87-102); Mean Platelet Volume 10.2 FL (9.6-12.0); Monocytes # 0.4 10*3/uL (0.11-0.8); Monocytes % 10.4 % (1.7-12.7); Neutrophils % 53.7 % (38.7-73.9); Platelet Count 88 T/CUMM (130-400); Red Blood Count 2.62 MC/CUMM (3.8-5.5); Red Cell Distribution Width 16.3 % (9.3-17.3); White Blood Count 4.15 T/CUMM (4-12)
[2022-10-19 06:08] LABS: Calcium 7.9 MG/DL (8.5-10.1); Osmolality,Calculated 272.5 MOS/KG (273-304); Potassium 3.3 MMOL/L (3.5-5.1)
[2022-10-19 06:23] LABS: Platelet Estimate Decreased
[2022-10-19 06:24] LABS: Anisocytosis 2+; Macrocytosis Slight
[2022-10-19] MEDS: SEVELAMER CARBONATE 800 MG TABLET PO SCH ×2 (08:53→11:22)
[2022-10-19] MEDS: GABAPENTIN 300 MG CAPSULE PO SCH (08:53)
[2022-10-19] MEDS: allopurinoL 100 MG TABLET PO SCH (08:57)
[2022-10-19] MEDS: MONTELUKAST 10 MG TABLET PO SCH (08:57)
[2022-10-19] MEDS: LUBIPROSTONE 24 MCG CAPSULE PO SCH (08:57)
[2022-10-19] MEDS: FERROUS SULFATE 325 MG TABLET PO SCH (08:57)
[2022-10-19] MEDS: CYANOCOBALAMIN 500 MCG TABLET PO SCH (08:57)
[2022-10-19] MEDS: BENZONATATE 100 MG CAPSULE PO SCH (08:57)
[2022-10-19] MEDS: ASPIRIN EC 81 MG TABLET PO SCH (08:57)
[2022-10-19] MEDS: LOSARTAN 25 MG TABLET PO SCH (08:58)
[2022-10-19] MEDS: carvediloL 6.25 MG TABLET PO SCH (08:58)
[2022-10-19] MEDS: FOLIC ACID 1 MG TABLET PO SCH (08:58)
[2022-10-19] MEDS: PANTOPRAZOLE 40 MG TABLET PO SCH (08:58)
[2022-10-19] MEDS: cloNIDine 0.1 MG TABLET PO SCH (08:59)
[2022-10-19] MEDS ORDERED: MAGNESIUM SULF RIDER 2 GM/50 ML PREMIX IV ONE (10:53)
[2022-10-19] MEDS ORDERED: POTASSIUM CHLORIDE 20 MEQ TABLET PO ONE (10:53)
[2022-10-19 12:09] VITALS: BP 98/56
== END 2022-10-19 14:08 | disposition home health service (06) | DRG 371 ==
LOC: N.2W 22:52 → SUATTDRO 22:52 → INTOOBSV 22:52 → SUATTDRO 23:42
PROVIDERS: ADMIT Internal Medicine; ATTEND Internal Medicine